=== PATIENT | female | born 1950 | race Caucasian/White ===

== ENCOUNTER → 2016-09-25 | Day surgery (SDC) | payer MEDICARE, BC ==
[~2016-09-25] MED LIST: IOHEXOL 180 MG/ML 20 ML VIAL (for RAD DIAG) ONE; JANU50TA9 PO; LACTATED RINGER'S 1000 ML INJ 1,000 ML ONE; LIDOCAINE HCL 1% 50 ML VIAL ONE; LISI10TA PO; LORTA5 PO; MIDAZOLAM HCL 2 MG/2 ML VIAL ONE; PROPOFOL 100 MG/10 ML INJ IV ONE; SIMV80TA PO; TRIAMCINOLONE ACETONIDE 40 MG/ML VIAL ONE; XARE10TA PO
--- NOTE | 2016-09-25 13:43 | TN ---
cc: BRADLY JUSTICE M.D. DATE OF SURGERY: 09/25/2016 PREOPERATIVE DIAGNOSIS: 1. Osteoarthritis of the right hip. 2. Arthrofibrosis, right hip. 3. Status post left total hip replacement arthroplasty. POSTOPERATIVE DIAGNOSIS: 1. Osteoarthritis of the right hip. 2. Arthrofibrosis, right hip. 3. Status post left total hip replacement arthroplasty. OPERATIVE PROCEDURE PERFORMED: 1. Manipulation of right hip under anesthesia. 2. Arthrogram of the right hip. 3. Injection of right hip with Kenalog 40 milligrams. 4. Use of fluoroscopy for percutaneous guidance. 5. Intraoperative x-ray right hip, two views. SURGEON: Bradly Justice MD. ANESTHESIA: TIVA. ESTIMATED BLOOD LOSS: Minimal. INDICATIONS FOR THE PROCEDURE: This patient is a 66-year-old female with significant right hip pain. She has had previous hip replacement on the left and is doing well. She is having progressive loss of range of motion of the right hip and pain with activities. Despite conservative care, she continued painful. She presents for surgical treatment. OPERATIVE PROCEDURE PERFORMED: The right hip was evaluated under anesthesia. Range of motion was internal rotation 20, external rotation 30, flexion 70, extension 0. A manipulation was performed. At the end of manipulation, extension 0, flexion 105, internal rotation 30, external rotation 40, adduction 20, abduction 30. The right hip was approached under fluoroscopy. A 22-gauge spinal needle was placed under fluoroscopic imaging to the anterior aspect of the right hip joint. This was placed in intra-articular position. An arthrogram was performed. There was evidence of pitting and erosive changes of the femoral head. Significant sclerotic changes were noted. There was no leak of contrast outside the joint. The hip was then injected with 40 mg of Kenalog and 3 cc of 1% lidocaine plain. A second manipulation was performed. Intraoperative x-ray was performed showing the results of the arthrogram and no evidence of a fracture. The patient was awakened and taken to the recovery room in satisfactory condition. MD ADILIA Tatum/MARY /1:33 PM /1:38 PM
== END | disposition home or self-care (01) ==
LOC: ESDC 11:41
PROVIDERS: ATTEND Orthopaedic Surgery Orthopaedic Surgery of the Spine
DX: M16.11 Unilateral primary osteoarthritis, right hip (principal); M24.651 Ankylosis, right hip
CPT/HCPCS: 01200; 27275; 73502; 76000; J2250; J3010; J3301; J7120; Q9965

== ENCOUNTER → 2017-01-15 | Day surgery (SDC) | payer MEDICARE, BC ==
[~2017-01-15] MED LIST changes: -PROPOFOL 100 MG/10 ML INJ IV ONE; +PROPOFOL 200 MG/20 ML AMP IV ONE
--- NOTE | 2017-01-15 16:50 | TN ---
cc: BRADLY JUSTICE DATE OF SURGERY: 01/15/2017 PREOPERATIVE DIAGNOSIS 1. Osteoarthritis right hip. 2. Arthrofibrosis right hip. POSTOPERATIVE DIAGNOSIS 3. Osteoarthritis right hip. 4. Arthrofibrosis right hip. PROCEDURE 5. Manipulation right hip under anesthesia. 6. Arthrogram of right hip. 7. Injection right hip with Kenalog 40 mg. 8. Fluoroscopy percutaneous needle placement. 9. Intraoperative x-ray right hip, two-views. SURGEON Bradly Justice MD ANESTHESIA TIVA. BLOOD LOSS Blood loss is none INDICATION This is 66-year female with a history of previous left hip replacement, doing well. The patient had progressive loss of motion and pain of the right hip. Investigative studies shows evidence of progressive arthritis. The patient is having episodes of severe pain with limited range of motion. She now presents for surgical treatment. PROCEDURE: The patient was brought to the operating room and anesthetized supine position. The right hip was evaluated under anesthesia. Range of motion was extension -5, range of motion extension -10, flexion 80, internal rotation 10 external rotation 20, adduction 10, abduction 15. After manipulation extension was -5, flexion 105, internal rotation 20, external rotation 30, adduction 15, abduction 30, the right hip was scrubbed alcohol followed by Hibiclens followed Chloraprep draped sterilely. A 22-gauge spinal needle was advanced under fluoroscopic guidance to be placed to the anterior aspect of the right hip joint. The contrast was injected. Arthrogram was performed showing evidence of significant loss of articular cartilage. There was no leak of contrast. Pitting and erosive change of the femoral head was seen. The right hip was then injected with 40 mg of Kenalog and 3 cc of 1% lidocaine plain. The hip was run through second range of motion. Intraoperative x-ray was obtained showing evidence of findings of the arthrogram and no evidence of fracture. There was extensive arthritis noted. The needle was withdrawn a bandage was placed, the patient was awakened and taken to the Recovery Room in satisfactory condition. Bradly Justice MD [facility] [place]/ /2:00 PM /2:45 PM
== END | disposition home or self-care (01) ==
LOC: ESDC 12:43
PROVIDERS: ATTEND Orthopaedic Surgery Orthopaedic Surgery of the Spine
DX: M16.11 Unilateral primary osteoarthritis, right hip (principal); M24.651 Ankylosis, right hip
CPT/HCPCS: 01200; 27275; 73502; 76000; J2250; J3010; J3301; J7120; Q9965